=== PATIENT | female | born 1955 | race Caucasian/White ===

== ENCOUNTER → 2023-06-17 | Day surgery (SDC) | payer MEDICARE, OTHER ==
[~2023-06-17] VITALS: Ht 160 cm; Wt 68.9 kg
[~2023-06-17] MED LIST: AGGRENOX PO; ALLO300T2 PO; BALANCED SALT IRRIG SOLN COMB1 500ML OP NR; CHOL100022 PO; CYCLOPENTOLATE HCL 1% OPHTH DROPS 2ML RIGHTEYE ONE; DILT120C88 PO; EZET10TA81 PO; FENTANYL CITRATE/PF 50MCG/ML 2ML VIAL ONE; FERR325T6 PO; FURO20TA4 PO; HYALURONATE SODIUM 10 MG/ML 0.55ML SYRINGE IO ONE; INSASP SUBCUT; INSULIN REGULAR (HUMULIN R) 300UNITS/3ML VIAL SUBCUT NR; LEVO112T7 PO; LOSA50TA41 PO; METO25TA6 PO; MIDAZOLAM HCL 2 MG/2 ML VIAL ONE; MONT-39 PO; OMEP40CA20 PO; PHENYLEPHRINE HCL 10% OPHTH DROPS 5ML RIGHTEYE ONE; ROSU40TA PO; SODIUM CHLORIDE 0.9% 1,000 ML IV SCH; TROPICAMIDE 1% OPHTH DROPS 15ML RIGHTEYE ONE; TRYPAN BLUE 0.5 ML DISP.SYRIN IO ONE; TURM500T PO; UBID50TA3 PO
== END | disposition home or self-care (01) ==
LOC: OR 05:33
PROVIDERS: ATTEND Ophthalmology
DX: E11.36 Type 2 diabetes mellitus with diabetic cataract (principal); H25.89 Other age-related cataract; I12.9 Hypertensive chronic kidney disease with stage 1 through stage 4 chronic kidney disease, or unspecified chronic kidney disease; E11.22 Type 2 diabetes mellitus with diabetic chronic kidney disease; N18.9 Chronic kidney disease, unspecified; E78.00 Pure hypercholesterolemia, unspecified; G47.30 Sleep apnea, unspecified; J45.909 Unspecified asthma, uncomplicated; K21.9 Gastro-esophageal reflux disease without esophagitis; Z90.710 Acquired absence of both cervix and uterus; Z98.890 Other specified postprocedural states; Z79.4 Long term (current) use of insulin; Z79.899 Other long term (current) drug therapy
CPT/HCPCS: 82962; 66984; J3010; J1815; J2250; J3490; A4217; Z7610 ×16; V2632; Q9957